=== PATIENT | male | born 1960 | race Caucasian/White ===

== ENCOUNTER → 2021-05-11 | Outpatient (CLI) | payer OTHER | END | disposition home or self-care (01) | LOC: RAH 11:00 | PROVIDERS: ATTEND Urology | DX: R31.0 Gross hematuria (principal) | CPT/HCPCS: 76770 ==

== ENCOUNTER 2021-11-19 09:54 | Day surgery (SDC) | payer OTHER ==
[2021-11-16 13:11] VITALS: BP 131/84
[2021-11-19] VITALS (17 sets, daily range): BP systolic 112–143; BP diastolic 67–92
[~2021-11-19] VITALS: Ht 175.3 cm; Wt 100.8 kg
[~2021-11-19 09:54] MED LIST: LACTATED RINGERS 1000ML 1,000 ML IV ONE; LEVOFLOXACIN 500 MG/D5W 100 ML 100 ML ONE; LOSA50TA64 PO; MULT-1367 PO; TAMS-1 PO
[2021-11-19] MEDS ORDERED: MIDAZOLAM HCL 1 MG/ML 2ML VIAL ONE (14:42)
[2021-11-19] MEDS ORDERED: SUCCINYLCHOLINE 200MG/10ML SYR ONE (14:43)
[2021-11-19] MEDS ORDERED: LIDOCAINE PF 100MG/5ML (2%) SYRINGE 5ML ONE (14:43)
[2021-11-19] MEDS ORDERED: PROPOFOL 10 MG/ML 20ML VIAL IV ONE ×2 (14:44→14:52)
[2021-11-19] MEDS ORDERED: FENTANYL CITRATE PF 50 MCG/1 ML 2ML VIAL ONE (14:44)
[2021-11-19] MEDS ORDERED: ROCURONIUM 10MG/1ML SYR 10 MG/ML ML ONE (14:46)
[2021-11-19] MEDS ORDERED: DEXAMETHASONE SOD PHOSPHATE 10MG/ML 1ML VIAL ONE (14:57)
[2021-11-19] MEDS ORDERED: ONDANSETRON 4MG INJ ONE (14:58)
[2021-11-19] MEDS ORDERED: GLYCOPYRROLATE 1 MG/5 ML SYRINGE ONE (15:50)
[2021-11-19] MEDS ORDERED: NEOSTIGMINE 5MG/5ML SYR IV ONE (15:50)
[2021-11-19] MEDS ORDERED: OPIUM/BELLADONNA ALKALOIDS 1 EACH SUPP.RECT RC ONE (15:51)
[2021-11-19] MEDS ORDERED: ALBUTEROL 0.083% 2.5 MG/3 ML INH IH ONE (16:23)
[2021-11-19] MEDS ORDERED: PHENAZOPYRIDINE HCL 200 MG TABLET ONE (17:11)
[2021-11-20] MEDS ORDERED: LEVOFLOXACIN 500 MG/D5W 100 ML 100 ML IV SCH (08:00)
== END 2021-11-19 17:50 | disposition home or self-care (01) ==
LOC: DAH 09:54
PROVIDERS: ATTEND Urology
DX: N40.1 Benign prostatic hyperplasia with lower urinary tract symptoms (principal); Z20.822 Contact with and (suspected) exposure to COVID-19; N41.1 Chronic prostatitis; R35.1 Nocturia; N13.8 Other obstructive and reflux uropathy; I10 Essential (primary) hypertension; E78.5 Hyperlipidemia, unspecified; E66.9 Obesity, unspecified; Z98.52 Vasectomy status; Z90.49 Acquired absence of other specified parts of digestive tract; Z87.891 Personal history of nicotine dependence; Z98.890 Other specified postprocedural states; Z88.0 Allergy status to penicillin
CPT/HCPCS: 52648; 87635; 94640; A4215; A4221; A4222; A4223; A4340; A4354; A4358; A4600; A4663; A4930; A6260; C9803; J0330; J1100; J1956; J2001; J2250; J2405; J2704 ×2; J2710; J3010; J3490; J7120 ×2